=== PATIENT | male | born 1995 | race Two or more races ===

== ENCOUNTER 2019-01-13 08:03 | Emergency (ER) | payer SELFPAY ==
[~2019-01-13] VITALS: Ht 182.9 cm; Wt 84.5 kg
[2019-01-13 08:26] VITALS: BP 128/65
== END 2019-01-13 09:31 | disposition home or self-care (01) ==
LOC: ER 08:08
DX: R06.02 Shortness of breath (principal); K12.2 Cellulitis and abscess of mouth; F12.10 Cannabis abuse, uncomplicated
CPT/HCPCS: 71046; 93005